=== PATIENT | male | born 2000 | race Caucasian/White ===

== ENCOUNTER 2024-07-04 14:20 | Emergency (ER) | payer SELFPAY ==
[~2024-07-04] VITALS: Ht 167.6 cm; Wt 78.0 kg
[2024-07-04 14:22] VITALS: O2SAT 100
[2024-07-04 14:38] VITALS: BP 136/93; PULSE 120; RESP 16; TEMP 98.3; O2SAT 98
[2024-07-04 17:41] LABS: BASOPHILS % 0.4 % (0.0-2.0); EOSINOPHILS % 0.1 % (0.0-5.0); HEMOGLOBIN. 14.9 g/dL (14.0-18.0); LYMPHOCYTES % 8.7 % (20.0-50.0); MEAN CORPUSCULAR HEMOGLOBIN 31.5 pg (28.0-32.0); MEAN CORPUSCULAR HGB CONC 33.9 g/dL (31.0-37.0); MEAN PLATELET VOLUME 7.7 fl (7.4-10.4); MONOCYTES % 7.5 % (2.0-8.0); NEUTROPHILS % 83.3 % (40.0-76.0); PLATELET 322 x1000/uL (130-400); RED BLOOD CELL COUNT 4.73 mill/uL (4.7-6.1); RED CELL DISTRIBUTION WIDTH 12.9 % (11.6-14.6); WHITE BLOOD COUNT 16.5 x1000/uL (4.5-11.0)
[2024-07-04 17:46] LABS: CHLORIDE 103 mEq/L (98-107); POTASSIUM 3.9 mEq/L (3.5-5.1); SODIUM 138 mEq/L (136-145)
[2024-07-04 17:47] LABS: CARBON DIOXIDE 25 mEq/L (21-32)
[2024-07-04 17:48] LABS: CALCIUM 9.8 mg/dL (8.7-10.4)
[2024-07-04 17:53] LABS: CREATININE 0.8 mg/dL (0.6-1.3); GLUCOSE 108 mg/dL (70-105); UREA NITROGEN BLOOD 7 mg/dL (9-23)
[2024-07-04] MEDS ORDERED: SODIUM CHLORIDE 0.9% 1,000 ML IV NR (17:53)
[2024-07-04 17:58] LABS: TROPONIN I HIGH SENSITIVITY < 4 ng/L (3.0-53)
[2024-07-04 19:47] LABS: ALANINE AMINOTRANSFERASE 126 IU/L (10-49); ALBUMIN 4.8 g/dL (3.2-4.8); ASPARTATE AMINOTRANSFERASE 42 IU/L (<34); BILIRUBIN DIRECT 0.2 mg/dL (<=3.0); BILIRUBIN TOTAL 0.5 mg/dL (0.1-1.0); PROTEIN TOTAL 8.1 g/dL (6.0-8.3)
== END 2024-07-04 21:25 | disposition left against medical advice (07) ==
LOC: ER 14:20
DX: F12.90 Cannabis use, unspecified, uncomplicated (principal); R07.9 Chest pain, unspecified; F14.90 Cocaine use, unspecified, uncomplicated
CPT/HCPCS: 80076; 80048; 83690; 85025; 84484; 36415; 71045; 93005; 99285; Z7610